=== PATIENT | male | born 1965 | race Caucasian/White ===

== ENCOUNTER 2017-05-22 21:16 | Outpatient (CLI) | payer MEDICARE, OTHER ==
[2017-05-22 22:53] LABS: Bilirubin Negative (Negative); Blood, Urine Negative (Negative); Clarity Clear (Clear); Glucose, Urine (Dipstick) 500 mg/dL (Negative); Leukocyte Negative (Negative); Nitrite Negative (Negative); Protein, Urine (Dipstick) Negative (Neg-Trace); Specific Gravity, Urine 1.015 (1.005-1.030); Urobilinogen 0.2 mg/dL (0.2-1.0); pH, Urine 7.5 (5.0-9.0)
== END 2017-05-22 21:17 | disposition home or self-care (01) ==
LOC: BURMANOR 21:16
PROVIDERS: ATTEND Family Medicine
DX: R30.0 Dysuria (principal)
CPT/HCPCS: 81003; 87086

== ENCOUNTER 2017-05-31 03:45 | Outpatient (CLI) | payer MEDICARE, OTHER ==
[2017-05-31 06:42] LABS: Bilirubin Negative (Negative); Blood, Urine Trace (Negative); Glucose, Urine (Dipstick) 500 mg/dL (Negative); Leukocyte Trace (Negative); Nitrite Negative (Negative); Protein, Urine (Dipstick) Trace mg/dL (Neg-Trace); Specific Gravity, Urine 1.015 (1.005-1.030); pH, Urine 7.5 (5.0-9.0)
[2017-05-31 06:48] LABS: Clarity Hazy (Clear)
[2017-05-31 06:49] LABS: Bacteria/HPF Rare-Few HPF (None Seen); Crystals/HPF 1+ AMORPH PHOS HPF (Negative); Other Microscopic Description C&S NOT ORDERED; Squamous Epithelial 0-3 HPF (0-3)
== END 2017-05-31 03:46 | disposition home or self-care (01) ==
LOC: BURMANOR 03:45
PROVIDERS: ATTEND Clinical Nurse Specialist Medical-Surgical
DX: E11.8 Type 2 diabetes mellitus with unspecified complications (principal)
CPT/HCPCS: 81001

== ENCOUNTER 2020-04-22 06:50 | Outpatient (CLI) | payer MEDICARE ==
[2020-04-22 07:07] LABS: #Basophils 0.1 thou/uL (0.0-0.2); #Eosinphils 0.3 thou/uL (0.0-0.7); #Lymphocytes 3.2 thou/uL (1.20-3.40); #Monocytes 0.6 thou/uL (0.11-0.59); %Eosinophils 3.4 % (0.0-10.0); %Lymphocytes 39.2 % (21.0-51.0); %Monocytes 7.8 % (0.0-10.0); %Neutrophils 48.7 % (42.0-75.0); Hemoglobin 16.4 g/dL (14.0-18.0); Mean Corpuscular HGB CONC 32.1 g/dL (32.0-36.0); Mean Corpuscular Hemoglobin 31.8 pg (27.0-31.0); Mean Platelet Volume 10.9 fL (7.4-10.4); Platelet Count 166 thou/uL (130-400); RBC Distribution Width 11.9 % (11.5-14.5); Red Blood Cell (RBC) Count 5.18 mill/uL (4.70-6.10); White Blood Cell (WBC) Count 8.3 thou/uL (4.8-10.8)
== END 2020-04-22 06:51 | disposition home or self-care (01) ==
LOC: BURMANOR 06:50
PROVIDERS: ATTEND Registered Nurse Community Health
DX: N39.0 Urinary tract infection, site not specified (principal)
CPT/HCPCS: 36415; 85025

== ENCOUNTER 2021-02-03 16:41 | Outpatient (CLI) | payer MEDICARE, OTHER ==
[2021-02-03 17:04] LABS: Bilirubin Negative (Negative); Blood, Urine Large (Negative); Clarity Turbid (Clear); Glucose, Urine (Dipstick) Negative (Negative); Ketone, Urine Negative (Negative); Leukocyte Large (Negative); Nitrite Negative (Negative); Protein, Urine (Dipstick) 100 mg/dL (Neg-Trace); Specific Gravity, Urine 1.015 (1.005-1.030); pH, Urine 7.5 (5.0-9.0)
== END 2021-02-03 16:42 | disposition home or self-care (01) ==
LOC: BURMANOR 16:41
PROVIDERS: ATTEND Family Medicine
DX: N39.0 Urinary tract infection, site not specified (principal)
CPT/HCPCS: 81003; 87086

== ENCOUNTER 2021-09-26 07:18 | Emergency (ER) | payer MEDICARE, OTHER ==
[2021-09-26] MEDS ORDERED: Iopamidol 370 76% 50 ML VIAL FS ONE (07:19)
[2021-09-26] MEDS ORDERED: Iopamidol 370 76% 100 ML VIAL FS ONE (07:19)
[2021-09-26] MEDS ORDERED: Acetaminophen 650 MG Suppository ONE (07:29)
[2021-09-26 07:46] LABS: Mean Corpuscular HGB CONC 34.3 g/dL (32.0-36.0); Mean Corpuscular Hemoglobin 32.1 pg (27.0-31.0); Mean Corpuscular Volume 93.5 fL (78.0-98.0); Mean Platelet Volume 9.9 fL (7.4-10.4); Platelet Count 210 thou/uL (130-400); RBC Distribution Width 12.5 % (11.5-14.5); Red Blood Cell (RBC) Count 4.38 mill/uL (4.70-6.10); White Blood Cell (WBC) Count 27.1 thou/uL (4.8-10.8)
[2021-09-26 08:02] LABS: ALT (SGPT) 36 U/L (8-55); AST (SGOT) 23 U/L (5-34); Albumin 3.2 g/dL (3.5-5.0); Alkaline Phosphatase 103 U/L (40-110); Anion Gap 15 mmol/L (10-20); BUN (Urea Nitrogen) 26 mg/dL (8.4-25.7); Bilirubin, Total 0.5 mg/dL (0.2-1.2); Calc. Creatinine Clearance 0 mL/min (70-130); Calcium 8.3 mg/dL (7.8-10.44); Carbon Dioxide 24 mmol/L (22-29); Chloride 105 mmol/L (98-107); Globulin 3.2 g/dL (2.4-3.5); Glucose 325 mg/dL (70-105); Protein, Total 6.4 g/dL (6.0-8.3); Sodium 140 mmol/L (136-145)
[2021-09-26 08:16] LABS: Band 34 % (5-11); Lymphocytes 3 % (21-51); MDiff Complete? YES; Monocytes 12 % (0-10); Neutrophil 49 % (42-75); Reactive Lymphocytes 2 % (0-10); Toxic Granulation SLIGHT; Vacuoles SLIGHT
[2021-09-26] MEDS ORDERED: Insulin Regular 300 UNITS/3 ML VIAL ONE (08:35)
[2021-09-26] MEDS ORDERED: cefTRIAXone\\ROCEPHIN 1 GM VIAL ONE (08:47)
[2021-09-26 08:58] LABS: Bilirubin Negative (Negative); Blood, Urine Moderate (Negative); Clarity Cloudy (Clear); Glucose, Urine (Dipstick) 500 mg/dL (Negative); Ketone, Urine 40 mg/dL (Negative); Leukocyte Trace (Negative); Nitrite Negative (Negative); Protein, Urine (Dipstick) 100 mg/dL (Neg-Trace); Urobilinogen 0.2 mg/dL (Less than 2); pH, Urine 8.5 (5.0-9.0)
[2021-09-26 09:03] LABS: Bacteria/HPF 3+ HPF (None Seen); Squamous Epithelial 0-3 HPF (0-3); WBC/HPF 21-50 HPF (0-3)
[2021-09-26 09:04] LABS: Triple Phosphate Crystal Rare HPF (None Seen)
[2021-09-26] MEDS ORDERED: Fentanyl 100 MCG/2 ML VIAL ONE ×2 (09:08→14:42)
[2021-09-26] MEDS ORDERED: Ketorolac Tromethamine 30 MG/ML VIAL ONE (10:05)
[2021-09-26] MEDS ORDERED: metroNIDAZOLE 500 MG/100 ML BAG ONE (10:10)
[2021-09-26 12:39] LABS: SARS-CoV-2 NAA Rapid Test Not Detected (NotDetected)
[2021-09-26] MEDS ORDERED: tiZANidine HCl 4 MG TAB PER TUBE SCH (16:30)
== END 2021-09-26 19:45 | disposition short-term general hospital (02) ==
LOC: BURERS 07:18
DX: R10.31 Right lower quadrant pain (principal); I10 Essential (primary) hypertension; N39.0 Urinary tract infection, site not specified; G12.21 Amyotrophic lateral sclerosis; E11.9 Type 2 diabetes mellitus without complications; E78.5 Hyperlipidemia, unspecified; K21.9 Gastro-esophageal reflux disease without esophagitis; D64.9 Anemia, unspecified; N40.0 Benign prostatic hyperplasia without lower urinary tract symptoms; Z79.84 Long term (current) use of oral hypoglycemic drugs; Z79.899 Other long term (current) drug therapy; Z20.822 Contact with and (suspected) exposure to COVID-19
CPT/HCPCS: 36415; 36416; 71045; 74177; 80053; 81003; 81015; 83605; 83880; 84484; 85025; 87040; 87077; 87086; 87149; 87186; 93005; 94760; 96365; 96367; 96375; 96376; J0696; J1815; J1885; J3010; Q9967; U0002